=== PATIENT | male | born 1950 | race Caucasian/White ===

== ENCOUNTER → 2018-08-09 | Outpatient (CLI) | payer OTHER ==
[~2018-08-09] MED LIST: ALBIPROI INH; ALBU90OI; ALBU90OI INH; AMIT25 PO; AZIT500 PO; BENICAR/HCTZ; CEFP200 PO; CIPRSO OU; CYCL10 PO; DOCU100 PO; FINA5; GABA300; GABA300 PO; HYDACE10B; HYDACE5 PO; HYDCHL25 PO; HYDMOR2 PO; HYDR1TAB94 PO; IBUP600 PO; LAVAP17G PO; MORP30ER PO; MORPHINE PO; NAPR550 PO; NUTRISOURCE FIBE4 GM PO; OMEP10ER; OMEP20ER PO; OMEP40CA12 PO; OXYC10ER PO; OXYC10TA19 PO; PROM25; PROM25 PO; Prilosec20 MG PO; RXCYCL10 PO; RXHYDACE PO; RXNAPNA550 PO; SACC250C; VALS80 PO
== END | disposition home or self-care (01) ==
LOC: LAB SHORT 08:25 → PLD 08:25
DX: D22.5 Melanocytic nevi of trunk (principal)
CPT/HCPCS: 88305

== ENCOUNTER → 2022-01-16 | Outpatient (CLI) | payer OTHER | END | disposition home or self-care (01) | LOC: LAB 14:26 → LAB SHORT 14:26 | DX: A49.9 Bacterial infection, unspecified (principal); D22.62 Melanocytic nevi of left upper limb, including shoulder; D22.5 Melanocytic nevi of trunk; D22.61 Melanocytic nevi of right upper limb, including shoulder; D22.39 Melanocytic nevi of other parts of face; L81.4 Other melanin hyperpigmentation; L82.1 Other seborrheic keratosis; L82.0 Inflamed seborrheic keratosis; L53.8 Other specified erythematous conditions; L57.0 Actinic keratosis; R20.8 Other disturbances of skin sensation; R58 Hemorrhage, not elsewhere classified | CPT/HCPCS: 87070; 87205 ==

== ENCOUNTER → 2024-10-19 | Outpatient (CLI) | payer OTHER ==
[2024-10-19 12:32] LABS: BASOPHILS ABSOLUTE AUTO 0.02 K/mm3 (0.00-0.23); BASOPHILS PERCENT AUTO 0 % (0-2); EOSINOPHILS ABSOLUTE AUTO 0.01 K/mm3 (0.00-0.68); EOSINOPHILS PERCENT AUTO 0 % (0-6); Hematocrit 42.5 % (37.0-53.0); Hemoglobin 14.7 g/dL (13.5-17.5); IMMATURE GRAN ABSOLUTE AUTO 0.05 K/mm3 (0.00-0.10); IMMATURE GRAN PERCENT AUTO 1 % (0-1); LYMPHOCYTES PERCENT AUTO 6 % (21-46); MONOCYTES ABSOLUTE AUTO 1.13 K/mm3 (0.16-1.47); MONOCYTES PERCENT AUTO 11 % (4-13); Mean Corpuscular HGB 32.1 pg (26.0-34.0); Mean Corpuscular HGB Conc 34.6 g/dL (31.5-36.5); Mean Corpuscular Volume 93 fL (80-100); Mean Platelet Volume 9.7 fL (9.1-12.4); NEUTROPHILS ABSOLUTE AUTO 8.06 K/mm3 (1.96-9.15); NEUTROPHILS PERCENT AUTO 82 % (41-73); Platelet Count 169 K/mm3 (150-400); RDW Coefficient Variation 12.8 % (11.7-14.2); RDW Standard Deviation 43.6 fL (35.1-46.3); Red Blood Cell Count 4.58 M/mm3 (4.30-5.90); White Blood Cell Count 9.87 K/mm3 (4.00-11.30)
[2024-10-19 12:45] LABS: Albumin, Blood 2.8 g/dL (3.4-5.0); Albumin/Globulin Ratio 0.4 (0.8-1.8); Bilirubin, Total 0.6 mg/dL (0.1-1.0); Bun/Creatinine Ratio 18.3 (12.0-20.0); Calcium, Blood 8.9 mg/dL (8.5-10.1); Creatinine, Blood 1.26 mg/dL (0.60-1.20); Globulin, Blood 6.3 g/dL (2.2-4.0); Magnesium, Blood 1.7 mg/dL (1.6-2.4); Potassium, Blood 3.7 mmol/L (3.5-5.5); Total Protein, Blood 9.1 g/dL (6.4-8.2)
== END | disposition home or self-care (01) ==
LOC: LAB SHORT 12:27 → LAB 12:27
DX: R07.9 Chest pain, unspecified (principal)
CPT/HCPCS: 80053; 83735; 84484; 85025